=== PATIENT | female | born 1975 | race Caucasian/White ===

== ENCOUNTER → 2025-05-18 09:13 | Outpatient (CLI) | payer OTHER, SELFPAY ==
--- NOTE | 2025-05-18 09:35 | DI.NM.S_ITS ---
PROCEDURE: NM HIDA WITH CCK PHARMACEUTICAL: 5.1 mCi Tc-99m mebrofenin IV; 1.5 mcg CCK IV. INDICATIONS: RUQ abd pain TECHNIQUE: Following intravenous administration of Tc-99m mebrofenin, sequential anterior abdominal images were obtained. To evaluate the contractile response of the gallbladder in response to Cholecystokinin (CCK), sincalide (0.02 ???g/kg) was administered by slow intravenous infusion approximately 60 minutes after the administration of the radiopharmaceutical. Sequential imaging was continued for 30 minutes after the start of CCK infusion. Gallbladder ejection fraction was calculated. COMPARISON: None. FINDINGS: Biliary scan: There is normal tracer uptake and excretion by the liver. There is normal visualization of the intrahepatic ducts, common bile duct, and gallbladder. There is normal tracer transit into the duodenum. CCK stimulation: There is hyperdynamic contractile response of the gallbladder to CCK infusion. The calculated gallbladder ejection fraction is 98 % ; normal values are above 35%. It has been shown that any patient abdominal pain after CCK administration is related to the rate of CCK injection, rather than to any underlying gallbladder disease (Clinical Nuclear Medicine 2012; 37: IMPRESSION: No scintigraphic findings concerning for acute cholecystitis. Hyperkinetic gallbladder ejection fraction. Correlate for biliary dyskinesia symptoms. Dictated by: Chiquis Castle M.D. on 05/18/2025 at 13:13 Approved by: Chiquis Castle M.D. on 05/18/2025 at 13:15
== END ==
LOC: NUCM 09:23
PROVIDERS: PCP Physician Assistant Medical; Referring Provider Physician Assistant Medical; Visit Provider Physician Assistant Medical
DX: R10.811 Right upper quadrant abdominal tenderness (principal)
CPT/HCPCS: 78227; A9537; J2805